=== PATIENT | male | born 1990 | race Caucasian/White ===

== ENCOUNTER 2020-08-09 17:56 | Emergency (ER) | payer OTHER ==
[2020-08-09] MEDS ORDERED: Lidocaine 1% with EPINEPHrine 1:100,000 50 ML MDV INFILT STA (18:25)
[2020-08-09] MEDS ORDERED: Diphtheria,Pertussis(Acell),Tetanus Vaccine 0.5 ML Syringe ONE (18:31)
[2020-08-09] MEDS ORDERED: Diphtheria,Pertussis(Acell),Tetanus Vaccine 0.5 ML Syringe IM ONE (18:32)
--- NOTE | 2020-08-09 18:47 | EDM.PDOC ---
ED HPI GENERAL MEDICAL PROBLEM - General Chief Complaint: Laceration Stated Complaint: HEADBUTTED BY HORSE Time Seen by Provider: 08/09/20 18:21 Source of Information: Reports: Patient History Limitations: Reports: No Limitations - History of Present Illness INITIAL COMMENTS - FREE TEXT/NARRATIVE: Sal is a 30-year-old male presenting to the ED for evaluation of a laceration to his lower lip. He was in the process of introducing a new horse to the other horses in his [place] when the new horse head butted him causing the laceration through the vermilion border of the lip. Actually 2 lacerations one being at the skin between the lip and the chin measuring about 1 cm and then the second being through the lip going to the mucous membranes measuring 3 cm. He denies any headache or loss of consciousness. He has no difficulty opening closing his jaw. There is no dental injury. - Related Data Allergies Allergy/AdvReac Type Severity Reaction Status Date / Time No Known Allergies Allergy Verified 08/09/20 18:17 Home Meds: Home Meds NK [No Known Home Meds] 08/09/20 [History] Past Medical History - Past Health History Medical/Surgical History: Denies Medical/Surgical History - Past Surgical History HEENT Surgical History: Reports: Adenoidectomy, Tonsillectomy Social & Family History - Tobacco Use Tobacco Use Status *Q: Never Tobacco User ED ROS GENERAL - Review of Systems Review Of Systems: See Below Constitutional: Reports: No Symptoms HEENT: Reports: Other (Laceration of the lower lip involving the skin between the lip and the chin and the lip going internally into the mucous membranes th rough the muscle and across the vermilion border.) Respiratory: Reports: No Symptoms Cardiovascular: Reports: No Symptoms Endocrine: Reports: No Symptoms GI/Abdominal: Reports: No Symptoms : Reports: No Symptoms Musculoskeletal: Reports: No Symptoms Skin: Reports: No Symptoms Neurological: Reports: No Symptoms Psychiatric: Reports: No Symptoms Hematologic/Lymphatic: Reports: No Symptoms Immunologic: Reports: No Symptoms ED EXAM, SKIN/RASH Exam: See Below Exam Limited By: No Limitations General Appearance: Alert, No Apparent Distress Eye Exam: Bilateral Eye: EOMI, PERRL Nose: Normal Inspection Throat/Mouth: Normal Teeth, Normal Oropharynx, Other (Patient has a laceration on the skin between the lower lip and the chin measuring 1 cm. He has an addit ional laceration of the lip measuring 3 cm traveling across the vermilion border going internal into the mucous membranes involving the muscle of the lower lip.). No: Normal Gums (There is a hematoma of the gums around tooth #11 but the tooth is well seated.) Head: Normocephalic, Facial Swelling (Swelling of the lower lip.) Neck: Normal Inspection, Supple, Non-Tender, Full Range of Motion Neurological: Alert, Oriented, Normal Cognition, No Motor/Sensory Deficits ED SKIN PROCEDURES - Laceration/Wound Repair Lower Mouth Appearance: Muscle, Irregular, Other (Laceration goes through the vermilion border) Distal NVT: Neuro & Vascular Intact Anesthetic Type: Local Local Anesthesia - Lidocaine (Xylocaine): 1% with EPI Local Anesthetic Volume: 3cc Skin Prep: Other (Tap water) Exploration/Debridement/Repair: Wound Explored, In a Bloodless Field, Explored to Base Closed with: Sutures Lac/Wound length In cm: 4.0 Suture Size: 5-0 # of Sutures: 2 Suture Type: Interrupted, Other (Chromic) Suture Size: 5-0 # of Sutures: 7 Repaired with: Chromic Tetanus Status Addressed: Yes Complications: No Course - Vital Signs Last Recorded V/S: Last Vital Signs Temp 36.4 C 08/09/20 18:23 Pulse 120 H 08/09/20 18:23 Resp 18 08/09/20 18:23 BP 149/93 H 08/09/20 18:23 Pulse Ox 97 08/09/20 18:23 - Orders/Labs/Meds Orders: Active Orders 24 hr Category Date Time Status Vaccines to be Administered [RC] PER UNIT ROUTINE Care 08/09/20 18:32 Active Meds: Medications Discontinued Medications Generic Name Dose Route Start Last Admin Trade Name Freq PRN Reason Stop Dose Admin Diphtheria/Tetanus/Acell Pertussis 0.5 ml 08/09/20 18:32 08/09/20 18:33 Diphtheria,Pertussis(Acell),Tetanus Vaccine 0.5 Ml Syringe IM 08/09/20 18:33 0.5 ml .ONCE ONE Administration Diphtheria/Tetanus/Acell Pertussis Confirm 08/09/20 18:31 Diphtheria,Pertussis(Acell),Tetanus Vaccine 0.5 Ml Syringe Administered 08/09/20 18:32 Dose 0.5 ml .ROUTE .STK-MED ONE Lidocaine/Epinephrine 5 ml 08/09/20 18:25 08/09/20 18:33 Lidocaine 1% With Epinephrine 1:100,000 50 Ml Mdv INFILT 08/09/20 18:26 5 ml ONETIME STA Administration - Re-Assessments/Exams Free Text/Narrative Re-Assessment/Exam: 08/09/20 18:52 I repaired the laceration to the skin and to the lower lip. The area was then cleaned and a small dimple was noted at the vermilion border so an additional stitch was placed bringing that back into alignment. Patient tolerated the procedure well. Patient's last tetanus was in 2002 so this was booster today. I discussed management of the dissolvable sutures with the patient. This time he suitable for discharge in satisfactory condition. Departure - Departure Time of Disposition: 18:45 Disposition: Home, Self-Care 01 Clinical Impression: Laceration of lip, complicated Qualifiers: Encounter type: initial encounter Qualified Code(s): S01.511A - Laceration without foreign body of lip, initial encounter - Discharge Information Instructions: Mouth Laceration, [id number] Referrals: Vivian Treviño DO [Primary Care Provider] - Forms: ED Department Discharge Care Plan Goals: Try not to lick the laceration or sutures. The natural tendency is to do this but it will accelerate the breakdown of the suture holding the wound together. You may experience some small amount of bleeding for the next couple of hours until the scab starts to form. I would recommend keeping the mouth clean by gargling with salt water. This will also help with pain. You may use Chapstick or white petroleum jelly to keep the lip moist. The sutures are dissolvable and will breakdown over time and do not need to be removed. We did update your tetanus today. Sepsis Event Note (ED) - Evaluation Sepsis Screening Result: No Definite Risk - Focused Exam Vital Signs: Vital Signs Temp Pulse Resp BP Pulse Ox 08/09/20 18:23 36.4 C 120 H 18 149/93 H 97 08/09/20 18:15 36.4 C 120 H 18 149/93 H 97 - Problem List & Annotations (1) Laceration of lip, complicated SNOMED Code(s): 38386457 Code(s): S01.511A - LACERATION WITHOUT FOREIGN BODY OF LIP, INITIAL ENCOUNTER Status: Acute Priority: Medium Current Visit: Yes Qualifiers: Encounter type: initial encounter Qualified Code(s): S01.511A - Laceration without foreign body of lip, initial encounter - Problem List Review Problem List Initiated/Reviewed/Updated: Yes - My Orders Last 24 Hours: My Active Orders 08/09/20 18:32 Vaccines to be Administered [RC] PER UNIT ROUTINE - Assessment/Plan Last 24 Hours: My Active Orders 08/09/20 18:32 Vaccines to be Administered [RC] PER UNIT ROUTINE
== END 2020-08-09 19:04 | disposition home or self-care (01) ==
LOC: JP.ED 17:56
DX: S01.511A Laceration without foreign body of lip, initial encounter (principal); Z23 Encounter for immunization; W45.8XXA Other foreign body or object entering through skin, initial encounter
CPT/HCPCS: 12013; 90471; 90715; 99282-25; 99283

== ENCOUNTER 2025-03-05 12:55 | Emergency (ER) | payer OTHER ==
[2025-03-05 13:54] LABS: BASOPHILS ABSOLUTE AUTO 0.03 K/uL (0.00-0.10); BASOPHILS PERCENT AUTO 0.3 % (0.1-1.3); EOSINOPHILS ABSOLUTE AUTO 0.12 K/uL (0.00-0.40); EOSINOPHILS PERCENT AUTO 1.4 % (0.0-5.4); IMMATURE GRAN ABSOLUTE AUTO 0.05 K/uL (0.00-0.23); IMMATURE GRAN PERCENT AUTO 0.6 % (0.0-0.7); LYMPHOCYTES ABSOLUTE AUTO 2.87 K/uL (0.8-3.3); LYMPHOCYTES PERCENT AUTO 32.4 % (11.4-47.7); MONOCYTES ABSOLUTE AUTO 0.63 K/uL (0.20-0.90); MONOCYTES PERCENT AUTO 7.1 % (3.3-12.6); NEUTROPHILS ABSOLUTE AUTO 5.16 K/uL (1.0-7.6); NEUTROPHILS PERCENT AUTO 58.2 % (40.0-78.1); PLATELET COUNT,PLT 370 K/uL (130-375); RED BLOOD CELL COUNT 4.90 M/uL (4.14-5.76); WHITE BLOOD CELL COUNT,WBC 8.9 K/uL (3.2-11.0)
[2025-03-05] MEDS: Ketorolac 30 MG/ML SDV IM ONE (13:57)
[2025-03-05] MEDS: Alum Hydrox/Mag Hydrox/Simeth 15 ML, Lidocaine 2% 15 ML PO ONE (13:58)
[2025-03-05 14:14] LABS: A/G RATIO 0.9 (1.2-2.2); ALANINE AMINOTRANSFERASE,ALT 37 U/L (12-78); ASPARTATE AMNIOTRANSFERASE,AST 22 U/L (15-37); BILIRUBIN TOTAL 0.2 mg/dL (0.2-1.0); BLOOD UREA NITROGEN,BUN 13 mg/dL (7-18); CARBON DIOXIDE,CO2 28 mmol/L (21-32); CHLORIDE,CL 102 mmol/L (100-108); CREATININE 0.8 mg/dL (0.8-1.3); EST CRCL DRUG DOSING (CG) 132.56 mL/min; ESTIMATED GFR 121 mL/min (>60); GLUCOSE RANDOM 97 mg/dL (74-106); POTASSIUM,K 3.8 mmol/L (3.6-5.2); PROTEIN TOTAL,TP 7.7 g/dL (6.4-8.2); SODIUM,NA 139 mmol/L (140-148)
== END 2025-03-05 16:05 | disposition home or self-care (01) ==
LOC: JP.ED 12:55
DX: R07.89 Other chest pain (principal); Z79.899 Other long term (current) drug therapy; Z86.16 Personal history of COVID-19
CPT/HCPCS: 36415; 71046; 80053; 83690; 84484; 85025; 85379; 93005; 96372; 99285; J1885; J3490; 93010; 99284; A9270-GY